=== PATIENT | male | born 1985 | race Two or more races ===

== ENCOUNTER 2018-07-10 18:23 | Emergency (ER) | payer OTHER ==
[~2018-07-10] VITALS: Ht 182.9 cm; Wt 139.7 kg
[2018-07-10] MEDS ORDERED: PRED50TA PO (18:51)
[2018-07-10] MEDS ORDERED: IBUP-1007 PO (18:51)
[2018-07-10] MEDS ORDERED: HYDR-3164 PO (18:51)
--- NOTE | 2018-07-10 18:51 | PHYS DOC ---
Adult General Chief Complaint Chief Complaint: LOWER BACK PAIN OR INJURY HPI HPI Patient is a 32 year old male who presents with left leg bent over and began having left lower back pain with sharp shooting pains and went down the back of his left leg. Patient rates his pain a 10 out of 10. (JAYRO KERR APRN) Review of Systems Review of Systems Constitutional: Denies fever or chills [] Eyes: Denies change in visual acuity, redness, or eye pain [] HENT: Denies nasal congestion or sore throat [] Respiratory: Denies cough or shortness of breath [] Cardiovascular: No additional information not addressed in HPI [] GI: Denies abdominal pain, nausea, vomiting, bloody stools or diarrhea [] : Denies dysuria or hematuria [] Musculoskeletal: Low back pain or joint pain [] Integument: Denies rash or skin lesions [] Neurologic: Denies headache, focal weakness or sensory changes [] Endocrine: Denies polyuria or polydipsia [] All other systems were reviewed and found to be within normal limits, except as documented in this note. (JAYRO KERR APRN) Physical Exam Physical Exam Constitutional: Well developed, well nourished, no acute distress, non-toxic appearance. [] HENT: Normocephalic, atraumatic, bilateral external ears normal, oropharynx moist, no oral exudates, nose normal. [] Eyes: PERRLA, EOMI, conjunctiva normal, no discharge. [] Neck: Normal range of motion, no tenderness, supple, no stridor. [] Cardiovascular:Heart rate regular rhythm, no murmur [] Lungs & Thorax: Bilateral breath sounds clear to auscultation [] Abdomen: Bowel sounds normal, soft, no tenderness, no masses, no pulsatile masses. [] Skin: Warm, dry, no erythema, no rash. [] Back: Left Lower back tenderness, no CVA tenderness. [] Extremities: No tenderness, no cyanosis, no clubbing, ROM intact, no edema. [] Neurologic: Alert and oriented X 3, normal motor function, normal sensory function, no focal deficits noted. [] Psychologic: Affect normal, judgement normal, mood normal. [] (JAYRO KERR APRN) Current Patient Data Vital Signs Vital Signs Date Time Temp Pulse Resp B/P (MAP) Pulse Ox O2 Delivery O2 Flow Rate FiO2 07/10/18 18:52 99.4 96 16 165/87 (113) 98 Room Air 99.4 (YADIEL KELSEY MD) EKG EKG [] (JAYRO KERR APRN) Radiology/Procedures Radiology/Procedures [] (JAYRO KERR APRN) Course & Med Decision Making Course & Med Decision Making Patient is a 32 year old male who presents with left leg bent over and began having left lower back pain with sharp shooting pains and went down the back of his left leg. Patient rates his pain a 10 out of 10. She states is been using lidocaine cream but needs something off because he is in a lot of pain. Patient is diagnosed with sciatica and will be given a steroid, hydrocodone, ibuprofen. Patient is also worried about his job and he will be given a work note. Patient is ambulatory with a steady gait. He has no lower leg swelling. There is slight tenderness to that left lower back. There is no deformities, bruising, swelling , redness or signs of injury or infection. Denies to follow-up with the primary care provider if pain persists. (JAYRO KERR APRN) Course & Med Decision Making Staff Physician Addendum: I was working in the ER during the course of this patient's visit. I was available for consultation as needed, but I was not directly involved in the care of this patient. (YADIEL KELSEY MD) Dragon Disclaimer Dragon Disclaimer This electronic medical record was generated, in whole or in part, using a voice recognition dictation system. (JAYRO KERR APRN) Departure Departure Impression: Primary Impression: Sciatica Disposition: HOME, SELF-CARE Condition: STABLE Patient Instructions: Sciatica, Sciatica with [facility]hab[facility] Additional Instructions: Follow-up with a primary care provider. Take medications as prescribed. Scripts Hydrocodone/Apap 5-325 (NORCO 5-325 TABLET) 1 Each Tablet 1 TAB PO PRN Q6HRS PRN for PAIN, #10 TAB 0 Refills Prov: JAYRO KERR APRN 07/10/18 Ibuprofen (IBUPROFEN) 600 Mg Tablet 600 MG PO PRN Q6HRS PRN for INFLAMMATION, #15 TAB Prov: JAYRO KERR APRN 07/10/18 Prednisone (PREDNISONE) 50 Mg Tablet 1 TAB PO DAILY, #5 TAB Prov: JAYRO KERR APRN 07/10/18 Problem Qualifiers Primary Impression: Sciatica Laterality: left Qualified Codes: M54.32 - Sciatica, left side JAYRO KERR APRN Jul 10, 2018 18:51 YADIEL KELSEY MD Jul 11, 2018 03:26
[2018-07-10 18:52] VITALS: BP 165/87
== END 2018-07-10 19:09 | disposition home or self-care (01) ==
LOC: ER 18:23
DX: M54.42 Lumbago with sciatica, left side (principal)
CPT/HCPCS: 99283